=== PATIENT | male | born 1930 | race Caucasian/White ===

== ENCOUNTER 2016-10-07 13:03 | Inpatient (IN) | payer MEDICARE ==
[2016-10-07] MEDS ORDERED: Magnesium Hydroxide 400 MG/5 ML Susp 30 ML Cup PO PRN (13:14)
[2016-10-07] MEDS ORDERED: Docusate Sodium 100 MG Cap PO PRN (13:14)
[2016-10-07] MEDS ORDERED: Ondansetron 4 MG/2 ML SDV IV PRN (13:14)
[2016-10-07] MEDS: Lactated Ringers 1,000 ML IV SCH ×2 (14:52→22:49)
[2016-10-07] MEDS ORDERED: Polyethylene Glycol 3350 Powder 17 GM Packet PO PRN (15:06)
[2016-10-07] MEDS: Pantoprazole 40 MG Vial IVPUSH SCH (16:09)
[2016-10-07] MEDS: METOCLOPRAMIDE 5 MG/5 ML PO SCH ×2 (16:10→19:39)
[2016-10-07] MEDS: Enalaprilat 1.25 MG/ML SDV IV SCH (17:15)
[2016-10-07] MEDS ORDERED: Enoxaparin 30 MG/0.3 ML Syringe SUBCUT SCH (20:00)
[2016-10-07] MEDS ORDERED: NORTRIPTYLINE 10 MG/5 ML PO SCH (20:00)
[2016-10-08] MEDS: Enalaprilat 1.25 MG/ML SDV IV SCH ×3 (05:55→11:28)
[2016-10-08] MEDS: Lactated Ringers 1,000 ML IV SCH (06:52)
[2016-10-08] MEDS ORDERED: Sodium Chloride 0.9% 10 ML Syringe FLUSH PRN (08:01)
[2016-10-08] MEDS: METOCLOPRAMIDE 5 MG/5 ML PO SCH ×3 (08:43→17:03)
--- NOTE | 2016-10-08 10:04 | PN ---
DATE: 10/08/2016 S: Toy is a gentleman admitted last night with nausea, vomiting, and dehydration, was started on IV fluids. O: On examination this morning; NECK: Supple. CHEST: Clear. CARDIAC: Regular. ABDOMEN: Soft. Normal bowel sounds. Full tender upper quadrant. ASSESSMENT: NAUSEA, VOMITING, AND QUESTION DIABETES. P: We will get an A1c. Ultrasound of the gallbladder is pending and then we will look at a C-reactive protein on him. Otherwise, other than the glycosuria and mildly elevated creatinine, everything else looks good. ESRGIO/LENCHO /[id number]
[2016-10-08 16:36] VITALS: BP 87/59
[2016-10-08] MEDS: Pantoprazole 40 MG Vial IVPUSH SCH (17:03)
--- NOTE | 2016-10-09 15:18 | DISCH ---
REASON FOR HOSPITALIZATION: This elderly gentleman came in. He is known to have gastroparesis. He came in vomiting, a little dehydrated. He has been now started on IV fluids. At the time of discharge, he was tolerating relatively regular diet. PHYSICAL EXAMINATION: ABDOMEN: Bowel sounds were good. No abdominal tenderness. CHEST: Clear. CARDIAC: Regular. IMAGING: Ultrasound of the gallbladder pending. I suspect it is going to be normal. LABORATORY DATA: Lab here in the hospital, CBC looked good. Creatinine mildly elevated. He had an A1c of 6.5. C-reactive protein was normal. Urinalysis, mild glycosuria. DISPOSITION: The patient is now discharged home. We will see him back in the clinic in 1 week. Recheck blood pressure. DISCHARGE MEDICATIONS: Home medications. DISCHARGE DIAGNOSIS: 1. NAUSEA AND VOMITING. 2. GASTROPARESIS. 3. HYPOTENSION, QUESTION ETIOLOGY. 4. MILD RENAL INSUFFICIENCY. MARIAH /[id number]
== END 2016-10-08 16:55 | disposition home or self-care (01) | DRG 392 ==
LOC: UNDOADMIN 13:03 → CC.MS 13:03
PROVIDERS: ADMIT Physician Assistant Medical; ATTEND General Practice
DX: K31.84 Gastroparesis (principal); M19.90 Unspecified osteoarthritis, unspecified site; N40.0 Benign prostatic hyperplasia without lower urinary tract symptoms; I25.10 Atherosclerotic heart disease of native coronary artery without angina pectoris; E78.5 Hyperlipidemia, unspecified; B37.9 Candidiasis, unspecified; G47.30 Sleep apnea, unspecified; E55.9 Vitamin D deficiency, unspecified; E86.0 Dehydration; I95.9 Hypotension, unspecified; N28.9 Disorder of kidney and ureter, unspecified; R81 Glycosuria
CPT/HCPCS: 36415; 74020; 76705; 80053; 81001; 82150; 83036; 83735; 85025; 86140; A9270-GY; C9113; J1650; J2405; J7120

== ENCOUNTER 2017-08-31 11:00 | Inpatient (IN) | payer MEDICARE ==
[2017-08-31] MEDS ORDERED: Lactated Ringers 1,000 ML IV ONE (11:24)
[2017-08-31] MEDS ORDERED: Ondansetron 8 MG in Sodium Chloride 0.9% 50 ML IV PRN (11:24)
--- NOTE | 2017-08-31 11:34 | EDM.PDOC ---
ED HPI GENERAL MEDICAL PROBLEM - General Chief Complaint: Gastrointestinal Problem Stated Complaint: nausea,dehydration Time Seen by Provider: 08/31/17 11:15 Source of Information: Reports: Patient, Family History Limitations: Reports: No Limitations - History of Present Illness INITIAL COMMENTS - FREE TEXT/NARRATIVE: Toy is an 86 year old male who presents to the ED with c/o nausea, vomiting, and constipation. His reports he has extensive medical history in regards to his abdomen. Struggles with constipation. He reports he has not had a BM since Friday 08/25. He has tried mag citrate and other laxatives without success. He reports that yesterday he began vomiting and has felt nauseated. He does report he is passing some gas and is burping lots. Has had a poor appetite. He reports he has not eaten or drank much the past few days. He denies any abdominal pain at present, but does report he did have some sharp pains on Friday. Has felt somewhat lightheaded. Denies any fever, chills, chest pain, shortness of breath, urinary symptoms, neuro changes. Onset Date: 08/29/17 Duration: Getting Worse Location: Reports: Abdomen Treatments DONKEY DOCTOR: Reports: Other Medication(s) (Mag citrate, laxatives) - Related Data Allergies Allergy/AdvReac Type Severity Reaction Status Date / Time morphine Allergy Hypertensio Verified 08/31/17 11:08 n Home Meds: Home Meds Metoclopramide [Reglan] 5 mg PO QID 06/07/13 [History] Nortriptyline HCl 50 ml PO DAILY 10/07/16 [History] Pantoprazole Sodium 40 mg PO DAILY 10/07/16 [History] Polyethylene Glycol 3350 [Clearlax] 17 gm PO DAILY PRN 10/07/16 [History] Past Medical History HEENT History: Reports: Other (See Below) Other HEENT History: 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, CAD, High Cholesterol Respiratory History: Reports: Sleep Apnea Gastrointestinal History: Reports: Other (See Below) Other Gastrointestinal History: chronic abdominal pain, gastroparesis Genitourinary History: Reports: BPH, Other (See Below) Other Genitourinary History: nocturia Musculoskeletal History: Reports: Arthritis Endocrine/Metabolic History: Reports: Vitamin D Deficiency - Past Surgical History Cardiovascular Surgical History: Reports: Coronary Artery Bypass GI Surgical History: Reports: Appendectomy Musculoskeletal Surgical History: Reports: Shoulder Surgery, Other (See Below) Other Musculoskeletal Surgeries/Procedures:: knee surgery Social & Family History - Tobacco Use Smoking Status *Q: Never Smoker - Caffeine Use Caffeine Use: Reports: None - Recreational Drug Use Recreational Drug Use: No - Living Situation & Occupation Living situation: Reports: Occupation: Retired ED ROS GENERAL - Review of Systems Review Of Systems: See Below Constitutional: Reports: Weakness, Fatigue, Decreased Appetite. Denies: Fever, Chills, Diaphoresis, Weight Loss HEENT: Reports: Rhinitis. Denies: Ear Pain, Throat Pain, Throat Swelling, Vertigo, Vision Change Respiratory: Reports: No Symptoms. Denies: Shortness of Breath, Wheezing, Pleuritic Chest Pain, Cough, Sputum, Hemoptysis Cardiovascular: Reports: Dyspnea on Exertion, Lightheadedness. Denies: Chest Pain, Edema, Palpitations, Syncope Endocrine: Reports: Fatigue GI/Abdominal: Reports: Anorexia, Constipation, Decreased Appetite, Distension, Flatus, Nausea, Vomiting. Denies: Abdominal Pain, Black Stool, Bloody Stool, Diarrhea, Hematemesis, Hematochezia, Melena : Reports: No Symptoms. Denies: Dysuria, Frequency, Urgency Musculoskeletal: Reports: No Symptoms Skin: Reports: Pallor Neurological: Reports: Dizziness, Weakness. Denies: Confusion, Headache, Numbness, Tingling Psychiatric: Reports: No Symptoms Hematologic/Lymphatic: Reports: No Symptoms Immunologic: Reports: No Symptoms ED EXAM, GI/ABD - Physical Exam Exam: See Below Exam Limited By: No Limitations General Appearance: Alert, WD/WN, Mild Distress Eyes: Bilateral: EOMI Head: Atraumatic, Normocephalic Neck: Normal Inspection, Supple, Non-Tender, Full Range of Motion Respiratory/Chest: No Respiratory Distress, No Accessory Muscle Use, Chest Non- Tender, Decreased Breath Sounds, Crackles Cardiovascular: Normal Peripheral Pulses, Regular Rate, Rhythm, No Edema, No Gallop, No JVD, No Murmur, No Rub GI/Abdominal Exam: Soft, Non-Tender, No Mass, Distended, Abnormal Bowel Sounds ( tinkling to BUQ, active BLQ). No: Guarding, Rigid, Rebound Back Exam: Normal Inspection, Full Range of Motion. No: CVA Tenderness (L), CVA Tenderness (R) Extremities: Normal Inspection, Normal Range of Motion, Non-Tender, Normal Capillary Refill, No Pedal Edema Neurological: Alert, Oriented, CN II-XII Intact, Normal Cognition, Normal Gait, Normal Reflexes, No Motor/Sensory Deficits Psychiatric: Normal Affect, Normal Mood Skin Exam: Warm, Dry, Intact, No Rash, Pallor Lymphatic: No Adenopathy Course - Vital Signs Last Recorded V/S: Last Vital Signs Temp 97.2 F 08/31/17 12:36 Pulse 106 H 08/31/17 12:36 Resp 16 08/31/17 12:36 BP 123/84 08/31/17 12:36 Pulse Ox 97 08/31/17 12:36 - Orders/Labs/Meds Orders: Active Orders 24 hr Category Date Time Status Patient Status [ADT] Routine ADT 08/31/17 12:36 Active Enema [RC] .PRN Care 08/31/17 12:05 Active Intake and Output [RC] 0600,1800 Care 08/31/17 12:36 Active Oxygen Therapy [RC] .PRN Care 08/31/17 12:36 Active Pulse Oximetry [RC] .PRN Care 08/31/17 12:36 Active Up With Assistance [RC] .PRN Care 08/31/17 12:36 Active Vital Signs [RC] 0800,1200,1600,2000,0000,0400 Care 08/31/17 12:36 Active Clear Liquid Diet [DIET] Diet 08/31/17 Dinner Active Abdomen 2V AP Flat Upright [CR] Stat Exams 08/31/17 11:22 Taken BASIC METABOLIC PANEL,BMP [CHEM] AM Lab 09/01/17 05:11 Ordered C-REACTIVE PROTEIN [CHEM] AM Lab 09/01/17 05:11 Ordered CBC WITH AUTO DIFF [HEME] AM Lab 09/01/17 05:11 Ordered MAGNESIUM [CHEM] AM Lab 09/01/17 05:11 Ordered Acetaminophen [Tylenol] Med 08/31/17 12:36 Active 650 mg PO Q4H PRN Enoxaparin [Lovenox] Med 08/31/17 16:00 Active 30 mg SUBCUT Q24H Ondansetron [Zofran] Med 08/31/17 12:36 Active 4 mg IV Q6H PRN Ondansetron [Zofran] 8 mg Med 08/31/17 11:24 Active Sodium Chloride 0.9% [Normal Saline] 50 ml IV Q8H Sodium Chloride 0.9% [Normal Saline] 1,000 ml Med 08/31/17 12:36 Active IV ASDIRECTED Temazepam [Restoril] Med 08/31/17 12:36 Active 15 mg PO BEDTIME PRN Resuscitation Status Routine Resus Stat 08/31/17 12:26 Ordered Medication Orders Acetaminophen (Tylenol) 650 mg PO Q4H PRN PRN Reason: Pain (Mild 1-3)/fever Enoxaparin Sodium (Lovenox) 30 mg SUBCUT Q24H DAO Ondansetron HCl 8 mg/ Sodium (Chloride) 54 mls @ 100 mls/hr IV Q8H PRN PRN Reason: Nausea Last Admin: 08/31/17 11:51 Dose: 100 mls/hr Sodium Chloride (Normal Saline) 1,000 mls @ 100 mls/hr IV ASDIRECTED DAO Insulin Aspart (Novolog) 0 unit SUBCUT WITHMEALSANDBED DAO; Protocol Metoclopramide HCl (Reglan) 5 mg PO QID DAO Non-Formulary Medication (Nortriptyline Hcl [Nortriptyline Hcl]) 50 ml PO DAILY DAO Ondansetron HCl (Zofran) 4 mg IV Q6H PRN PRN Reason: Nausea/Vomiting Pantoprazole Sodium (Protonix) 40 mg PO DAILY DAO Polyethylene Glycol (Miralax) 17 gm PO DAILY DAO Temazepam (Restoril) 15 mg PO BEDTIME PRN PRN Reason: Sleep Labs: Laboratory Tests 08/31/17 08/31/17 Range/Units 11:25 11:25 WBC 10.4 H (5.0-10.0) 10^3/uL RBC 5.29 (4.50-6.00) 10^6/uL Hgb 14.9 (14.0-18.0) g/dL Hct 44.0 (40.0-54.0) % MCV 83.2 (82.0-94.0) fL MCH 28.2 (27.0-32.0) pg MCHC 33.9 (33.0-38.0) g/dL RDW Coeff of Irena 14.9 (11.0-15.0) % Plt Count 197 (150-400) 10^3/uL Neut % (Auto) 85.9 H (35-85) % Lymph % (Auto) 6.9 L (10-55) % Forest % (Auto) 7.2 (0-16) % Eos % (Auto) 0 (0-5) % Baso % (Auto) 0 (0-3) % Neut # (Auto) 8.92 H (1.80-7.00) 10^3/uL Lymph # (Auto) 0.72 L (1.00-4.80) 10^3/uL Forest # (Auto) 0.75 (0.00-0.80) 10^3/uL Eos # (Auto) 0.00 (0.00-0.45) 10^3/uL Baso # (Auto) 0.00 10^3/uL Sodium 134 L (136-145) mEq/L Potassium 4.2 (3.5-5.0) mEq/L Chloride 93 L (98-106) mEq/L Carbon Dioxide 26 (21-32) mmol/L BUN 24 H (7-18) mg/dL Creatinine 1.7 H (0.7-1.3) mg/dL Est Cr Clr Drug Dosing 26.12 mL/min Estimated GFR (MDRD) 38 L (>=60) mL/min Glucose 247 H D (75-99) mg/dL Calcium 10.3 H (8.4-10.1) mg/dL Total Bilirubin 0.7 (0.0-1.0) mg/dL AST 19 (15-37) U/L ALT 15 (12-78) U/L Alkaline Phosphatase 116 (46-116) U/L C-Reactive Protein 5.8 H (0.2-0.8) mg/dL Total Protein 7.9 (6.4-8.2) g/dL Albumin 4.1 (3.4-5.0) g/dL Meds: Medications Generic Name Dose Route Start Last Admin Trade Name Freq PRN Reason Stop Dose Admin Acetaminophen 650 mg 08/31/17 12:36 Tylenol PO Q4H PRN Pain (Mild 1-3)/fever Enoxaparin Sodium 30 mg 08/31/17 16:00 Lovenox SUBCUT Q24H DAO Ondansetron HCl 8 mg/ Sodium 54 mls @ 100 mls/hr 08/31/17 11:24 08/31/17 11: 51 Chloride IV 100 mls/hr Q8H PRN Administration Nausea Sodium Chloride 1,000 mls @ 100 mls/hr 08/31/17 12:36 Normal Saline IV ASDIRECTED [facility] Insulin Aspart 0 unit 08/31/17 17:30 Novolog SUBCUT WITHMEALSANDBED [facility] Protocol Metoclopramide HCl 5 mg 08/31/17 16:00 Reglan PO QID [facility] Non-Formulary Medication 50 ml 09/01/17 08:00 Nortriptyline Hcl [Nortriptyline Hcl] PO DAILY [facility] Ondansetron HCl 4 mg 08/31/17 12:36 Zofran IV Q6H PRN Nausea/Vomiting Pantoprazole Sodium 40 mg 09/01/17 08:00 Protonix PO DAILY [facility] Polyethylene Glycol 17 gm 09/01/17 08:00 Miralax PO DAILY [facility] Temazepam 15 mg 08/31/17 12:36 Restoril PO BEDTIME PRN Sleep Discontinued Medications Generic Name Dose Route Start Last Admin Trade Name Eugeneq PRN Reason Stop Dose Admin Lactated Ringer's 1,000 mls @ 999 mls/hr 08/31/17 11:24 08/31/17 11:51 Ringers, Lactated IV 08/31/17 12:24 999 mls/hr .BOLUS ONE Administration Magnesium Citrate 300 ml 08/31/17 12:05 Citrate Of Magnesia PO 08/31/17 12:06 ONETIME ONE - Re-Assessments/Exams Free Text/Narrative Re-Assessment/Exam: 08/31/17 12:20 Discussed labs and xray with patient and . I do not see multiple air fluid levels to indicate bowel obstruction. We will admit to observation. Try enema and mag citrate to get patient to have BM. NS @ 100 mL/hr. 08/31/2017 1330 Radiology report indicates no bowel obstruction. They also report there is not significant stool in colon. Will still proceed with methods to induce BM as patient has not had one in ~6 days. Departure - Departure Time of Disposition: 12:40 Disposition: Refer to Observation Condition: Fair Clinical Impression: Constipation, Nausea and vomiting, Renal insufficiency - Discharge Information - Problem List & Annotations (1) Constipation SNOMED Code(s): 96351060 Code(s): K59.00 - CONSTIPATION, UNSPECIFIED Status: Acute Current Visit: Yes (2) Diabetes mellitus type 2 SNOMED Code(s): 98835295 Code(s): E11.9 - TYPE 2 DIABETES MELLITUS WITHOUT COMPLICATIONS Status: Chronic Priority: Medium Current Visit: No (3) Nausea and vomiting SNOMED Code(s): 26604628 Code(s): R11.2 - NAUSEA WITH VOMITING, UNSPECIFIED Status: Acute Priority : High Current Visit: Yes (4) Renal insufficiency SNOMED Code(s): 751561044, 856818591 Code(s): N28.9 - DISORDER OF KIDNEY AND URETER, UNSPECIFIED Status: Acute Current Visit: Yes - Problem List Review Problem List Initiated/Reviewed/Updated: Yes - My Orders Last 24 Hours: My Active Orders 08/31/17 11:22 Abdomen 2V AP Flat Upright [CR] Stat 08/31/17 11:24 Ondansetron [Zofran] 8 mg Sodium Chloride 0.9% [Normal Saline] 50 ml IV Q8H 08/31/17 12:05 Enema [RC] .PRN 08/31/17 12:26 Resuscitation Status Routine 08/31/17 12:36 Patient Status [ADT] Routine Intake and Output [RC] 0600,1800 Oxygen Therapy [RC] .PRN Pulse Oximetry [RC] .PRN Up With Assistance [RC] .PRN Vital Signs [RC] 0800,1200,1600,2000,0000,0400 Acetaminophen [Tylenol] 650 mg PO Q4H PRN Ondansetron [Zofran] 4 mg IV Q6H PRN Sodium Chloride 0.9% [Normal Saline] 1,000 ml IV ASDIRECTED Temazepam [Restoril] 15 mg PO BEDTIME PRN 08/31/17 16:00 Enoxaparin [Lovenox] 30 mg SUBCUT Q24H 08/31/17 Dinner Clear Liquid Diet [DIET] 09/01/17 05:11 BASIC METABOLIC PANEL,BMP [CHEM] AM C-REACTIVE PROTEIN [CHEM] AM CBC WITH AUTO DIFF [HEME] AM MAGNESIUM [CHEM] AM - Assessment/Plan Admission H&P: Please use this note as an admission H&P Last 24 Hours: My Active Orders 08/31/17 11:22 Abdomen 2V AP Flat Upright [CR] Stat 08/31/17 11:24 Ondansetron [Zofran] 8 mg Sodium Chloride 0.9% [Normal Saline] 50 ml IV Q8H 08/31/17 12:05 Enema [RC] .PRN 08/31/17 12:26 Resuscitation Status Routine 08/31/17 12:36 Patient Status [ADT] Routine Intake and Output [RC] 0600,1800 Oxygen Therapy [RC] .PRN Pulse Oximetry [RC] .PRN Up With Assistance [RC] .PRN Vital Signs [RC] 0800,1200,1600,2000,0000,0400 Acetaminophen [Tylenol] 650 mg PO Q4H PRN Ondansetron [Zofran] 4 mg IV Q6H PRN Sodium Chloride 0.9% [Normal Saline] 1,000 ml IV ASDIRECTED Temazepam [Restoril] 15 mg PO BEDTIME PRN 08/31/17 16:00 Enoxaparin [Lovenox] 30 mg SUBCUT Q24H 08/31/17 Dinner Clear Liquid Diet [DIET] 09/01/17 05:11 BASIC METABOLIC PANEL,BMP [CHEM] AM C-REACTIVE PROTEIN [CHEM] AM CBC WITH AUTO DIFF [HEME] AM MAGNESIUM [CHEM] AM Plan: Admit to observation. Will start IVF. Enema and mag citrate to see if we can get patient to have bowel movement. Abdominal xray reveals no bowel obstruction, nor does it reveal significant stool. Zofran as needed for nausea. Will get QID blood glucose checks. BS elevated on lab work. SS novolog.
[2017-08-31] MEDS ORDERED: Magnesium Citrate Solution 296 ML Bottle PO ONE (12:05)
[2017-08-31] MEDS ORDERED: Ondansetron 4 MG/2 ML SDV IV PRN (12:36)
[2017-08-31] MEDS ORDERED: Acetaminophen 325 MG Tab PO PRN (12:36)
[2017-08-31] MEDS: Sodium Chloride 0.9% 1,000 ML IV SCH ×2 (13:58→19:49)
[2017-08-31] MEDS ORDERED: Enoxaparin 30 MG/0.3 ML Syringe SUBCUT SCH (16:00)
[2017-08-31] MEDS ORDERED: Metoclopramide 10 MG Tab PO SCH (16:00)
[2017-08-31] MEDS: METOCLOPRAMIDE 5 MG/5 ML PO SCH ×2 (16:50→19:51)
[2017-08-31] MEDS: Insulin Aspart 100 Units/ML 3 ML Pen SUBCUT SCH (17:24)
[2017-08-31] MEDS: Pantoprazole 40 MG Vial IVPUSH SCH (18:28)
[2017-09-01] MEDS: Insulin Aspart 100 Units/ML 3 ML Pen SUBCUT SCH ×5 (03:14→20:34)
[2017-09-01] MEDS: METOCLOPRAMIDE 5 MG/5 ML PO SCH ×4 (07:41→20:32)
[2017-09-01] MEDS: NORTRIPTYLINE 10 MG/5 ML PO SCH (07:42)
[2017-09-01] MEDS ORDERED: NORTRIPTYLINE HCL PO SCH (08:00)
[2017-09-01] MEDS ORDERED: Polyethylene Glycol 3350 Powder 238 GM Bot PO SCH (08:00)
[2017-09-01] MEDS ORDERED: NORTRIPTYLINE PO SCH (08:00)
[2017-09-01] MEDS ORDERED: Levofloxacin/Dextrose 5%-Water 500 MG in Premix Bag 1 BAG IV ONE (08:00)
[2017-09-01] MEDS ORDERED: Pantoprazole 40 MG Tab.CR PO SCH (08:00)
[2017-09-01] MEDS: Polyethylene Glycol 3350 Powder 17 GM Packet PO SCH (08:04)
[2017-09-01] MEDS: Sodium Chloride 0.9% 1,000 ML IV SCH (10:54)
[2017-09-01] MEDS ORDERED: hydrALAZINE 20 MG/ML SDV IVPUSH PRN (17:13)
[2017-09-01] MEDS: Pantoprazole 40 MG Vial IVPUSH SCH (17:46)
[2017-09-01] MEDS ORDERED: hydrALAZINE 25 MG Tab PO STA (17:53)
[2017-09-02] MEDS: Temazepam 15 MG Cap PO PRN (00:17)
[2017-09-02] MEDS: METOCLOPRAMIDE 5 MG/5 ML PO SCH ×4 (07:42→19:40)
[2017-09-02] MEDS: NORTRIPTYLINE 10 MG/5 ML PO SCH (07:44)
[2017-09-02] MEDS: Insulin Aspart 100 Units/ML 3 ML Pen SUBCUT SCH ×2 (07:45→11:52)
[2017-09-02] MEDS: Polyethylene Glycol 3350 Powder 17 GM Packet PO SCH (07:46)
[2017-09-02] MEDS ORDERED: Levofloxacin/Dextrose 5%-Water 250 MG in Premix Bag 1 BAG IV SCH (08:00)
--- NOTE | 2017-09-02 08:31 | PCM.PN ---
- General Info Date of Service: 09/01/17 - Patient Data Vitals - Most Recent: Last Vital Signs Temp 99.3 F 09/02/17 07:31 Pulse 91 09/02/17 07:31 Resp 20 09/02/17 07:31 BP 120/78 09/02/17 07:31 Pulse Ox 94 L 09/02/17 07:31 Weight - Most Recent: 163 lb 14.4 oz I&O - Last 24 Hours: Intake & Output 09/01/17 09/02/17 09/02/17 22:59 06:59 14:59 Intake Total 500 250 Output Total 1500 Balance -1000 250 Lab Results Last 24 Hours: Laboratory Results - last 24 hr 09/01/17 09/01/17 09/01/17 Range/Units 12:04 17:04 20:33 POC Glucose 167 H 181 H 203 H (75-105) mg/dl 09/02/17 Range/Units 07:33 POC Glucose 133 H (75-105) mg/dl Med Orders - Current: Current Medications Acetaminophen (Tylenol) 650 mg PO Q4H PRN PRN Reason: Pain (Mild 1-3)/fever Last Admin: 08/31/17 19:54 Dose: 650 mg Ondansetron HCl 8 mg/ Sodium (Chloride) 54 mls @ 100 mls/hr IV Q8H PRN PRN Reason: Nausea Last Admin: 08/31/17 11:51 Dose: 100 mls/hr Levofloxacin/Dextrose 250 mg/ (Premix) 50 mls @ 50 mls/hr IV DAILY [facility] Last Admin: 09/02/17 07:35 Dose: 50 mls/hr Insulin Aspart (Novolog) 0 unit SUBCUT WITHMEALSANDBED [facility]; Protocol Last Admin: 09/02/17 07:45 Dose: Not Given Nortriptyline 10 Mg/5 Ml Oral Soln Own Med 0 ml PO DAILY [facility] Last Admin: 09/02/17 07:44 Dose: 15 ml Metoclopramide 5 Mg/5ml Oral Soln Own Med 0 each PO QID [facility] Last Admin: 09/02/17 07:42 Dose: 1 each Ondansetron HCl (Zofran) 4 mg IV Q6H PRN PRN Reason: Nausea/Vomiting Last Admin: 09/02/17 00:12 Dose: 4 mg Pantoprazole Sodium (Protonix Iv) 40 mg IVPUSH DAILY@1730 [facility] Last Admin: 09/01/17 17:46 Dose: 40 mg Polyethylene Glycol (Miralax) 17 gm PO DAILY [facility] Last Admin: 09/02/17 07:46 Dose: 17 gm Temazepam (Restoril) 15 mg PO BEDTIME PRN PRN Reason: Sleep Last Admin: 09/02/17 00:17 Dose: 15 mg Discontinued Medications Enoxaparin Sodium (Lovenox) 30 mg SUBCUT Q24H [facility] Hydralazine HCl (Apresoline) 25 mg PO NOW STA Stop: 09/01/17 17:54 Last Admin: 09/01/17 18:21 Dose: 25 mg Lactated Ringer's (Ringers, Lactated) 1,000 mls @ 999 mls/hr IV .BOLUS ONE Stop: 08/31/17 12:24 Last Admin: 08/31/17 11:51 Dose: 999 mls/hr Sodium Chloride (Normal Saline) 1,000 mls @ 100 mls/hr IV ASDIRECTED [facility] Last Admin: 09/01/17 10:54 Dose: 100 mls/hr Levofloxacin/Dextrose 500 mg/ (Premix) 100 mls @ 100 mls/hr IV ONETIME ONE Stop: 09/01/17 08:59 Last Admin: 09/01/17 08:08 Dose: 100 mls/hr Magnesium Citrate (Citrate Of Magnesia) 300 ml PO ONETIME ONE Stop: 08/31/17 12:06 Last Admin: 08/31/17 13:00 Dose: 296 ml Metoclopramide HCl (Reglan) 5 mg PO QID [facility] Last Admin: 08/31/17 17:00 Dose: Not Given Non-Formulary Medication (Nortriptyline Hcl [Nortriptyline Hcl]) 50 ml PO DAILY [facility] Non-Formulary Medication (Nortriptyline Hcl [Nortriptyline Hcl]) 30 ml PO DAILY [facility] Pantoprazole Sodium (Protonix) 40 mg PO DAILY [facility] Polyethylene Glycol (Miralax) 17 gm PO DAILY [facility] - Problem List & Annotations (1) Constipation SNOMED Code(s): 87667745 Code(s): K59.00 - CONSTIPATION, UNSPECIFIED Status: Acute Current Visit: Yes (2) Diabetes mellitus type 2 SNOMED Code(s): 33458100 Code(s): E11.9 - TYPE 2 DIABETES MELLITUS WITHOUT COMPLICATIONS Status: Chronic Priority: Medium Current Visit: No (3) Nausea and vomiting SNOMED Code(s): 15929219 Code(s): R11.2 - NAUSEA WITH VOMITING, UNSPECIFIED Status: Acute Priority : High Current Visit: Yes (4) Renal insufficiency SNOMED Code(s): 312972466, 935733779 Code(s): N28.9 - DISORDER OF KIDNEY AND URETER, UNSPECIFIED Status: Acute Current Visit: Yes - My Orders Last 24 Hours: My Active Orders 09/01/17 08:00 UA W/MICROSCOPIC [URIN] Routine Nortriptyline HCl [Nortriptyline HCl] 0 ml PO DAILY Polyethylene Glycol 3350 [MiraLAX] 17 gm PO DAILY 09/02/17 08:00 Levofloxacin/Dextrose 5%-Water [Levaquin in D5W 250 MG/50 ML] 250 mg Premix Bag 1 bag IV DAILY 09/02/17 08:01 BASIC METABOLIC PANEL,BMP [CHEM] Routine CRP, HIGH SENSITIVITY [REF] Routine
--- NOTE | 2017-09-02 08:31 | PCM.DCSUM1 ---
Discharge Summary - Discharge Data Discharge Date: 09/02/17 Discharge Disposition: Home, Self-Care 01 Condition: Good - Discharge Diagnosis/Problem(s) (1) Constipation SNOMED Code(s): 01596455 ICD Code: K59.00 - CONSTIPATION, UNSPECIFIED Status: Acute Current Visit : Yes (2) Diabetes mellitus type 2 SNOMED Code(s): 73441078 ICD Code: E11.9 - TYPE 2 DIABETES MELLITUS WITHOUT COMPLICATIONS Status: Chronic Priority: Medium Current Visit: No (3) Nausea and vomiting SNOMED Code(s): 47856188 ICD Code: R11.2 - NAUSEA WITH VOMITING, UNSPECIFIED Status: Acute Priority: High Current Visit: Yes (4) Renal insufficiency SNOMED Code(s): 292776250, 467172321 ICD Code: N28.9 - DISORDER OF KIDNEY AND URETER, UNSPECIFIED Status: Acute Current Visit: Yes - Discharge Plan Home Medications: Home Meds Metoclopramide [Reglan] 5 mg PO QID 06/07/13 [History] Nortriptyline HCl 15 ml PO DAILY 10/07/16 [History] Pantoprazole Sodium 40 mg PO DAILY 10/07/16 [History] Polyethylene Glycol 3350 [Clearlax] 17 gm PO DAILY PRN 10/07/16 [History] Forms: ED Department Discharge Referrals: Marco A Barraza MD [Primary Care Provider] - - Patient Data Vitals - Most Recent: Last Vital Signs Temp 99.3 F 09/02/17 07:31 Pulse 91 09/02/17 07:31 Resp 20 09/02/17 07:31 BP 120/78 09/02/17 07:31 Pulse Ox 94 L 09/02/17 07:31 Weight - Most Recent: 163 lb 14.4 oz I&O - Last 24 hours: Intake & Output 09/01/17 09/02/17 09/02/17 22:59 06:59 14:59 Intake Total 500 250 Output Total 1500 Balance -1000 250 Lab Results - Last 24 hrs: Laboratory Results - last 24 hr 09/01/17 09/01/17 09/01/17 Range/Units 12:04 17:04 20:33 POC Glucose 167 H 181 H 203 H (75-105) mg/dl 09/02/17 Range/Units 07:33 POC Glucose 133 H (75-105) mg/dl Med Orders - Current: Current Medications Acetaminophen (Tylenol) 650 mg PO Q4H PRN PRN Reason: Pain (Mild 1-3)/fever Last Admin: 08/31/17 19:54 Dose: 650 mg Ondansetron HCl 8 mg/ Sodium (Chloride) 54 mls @ 100 mls/hr IV Q8H PRN PRN Reason: Nausea Last Admin: 08/31/17 11:51 Dose: 100 mls/hr Levofloxacin/Dextrose 250 mg/ (Premix) 50 mls @ 50 mls/hr IV DAILY [facility] Last Admin: 09/02/17 07:35 Dose: 50 mls/hr Insulin Aspart (Novolog) 0 unit SUBCUT WITHMEALSANDBED [facility]; Protocol Last Admin: 09/02/17 07:45 Dose: Not Given Nortriptyline 10 Mg/5 Ml Oral Soln Own Med 0 ml PO DAILY [facility] Last Admin: 09/02/17 07:44 Dose: 15 ml Metoclopramide 5 Mg/5ml Oral Soln Own Med 0 each PO QID [facility] Last Admin: 09/02/17 07:42 Dose: 1 each Ondansetron HCl (Zofran) 4 mg IV Q6H PRN PRN Reason: Nausea/Vomiting Last Admin: 09/02/17 00:12 Dose: 4 mg Pantoprazole Sodium (Protonix Iv) 40 mg IVPUSH DAILY@1730 [facility] Last Admin: 09/01/17 17:46 Dose: 40 mg Polyethylene Glycol (Miralax) 17 gm PO DAILY [facility] Last Admin: 09/02/17 07:46 Dose: 17 gm Temazepam (Restoril) 15 mg PO BEDTIME PRN PRN Reason: Sleep Last Admin: 09/02/17 00:17 Dose: 15 mg Discontinued Medications Enoxaparin Sodium (Lovenox) 30 mg SUBCUT Q24H [facility] Hydralazine HCl (Apresoline) 25 mg PO NOW STA Stop: 09/01/17 17:54 Last Admin: 09/01/17 18:21 Dose: 25 mg Lactated Ringer's (Ringers, Lactated) 1,000 mls @ 999 mls/hr IV .BOLUS ONE Stop: 08/31/17 12:24 Last Admin: 08/31/17 11:51 Dose: 999 mls/hr Sodium Chloride (Normal Saline) 1,000 mls @ 100 mls/hr IV ASDIRECTED DAO Last Admin: 09/01/17 10:54 Dose: 100 mls/hr Levofloxacin/Dextrose 500 mg/ (Premix) 100 mls @ 100 mls/hr IV ONETIME ONE Stop: 09/01/17 08:59 Last Admin: 09/01/17 08:08 Dose: 100 mls/hr Magnesium Citrate (Citrate Of Magnesia) 300 ml PO ONETIME ONE Stop: 08/31/17 12:06 Last Admin: 08/31/17 13:00 Dose: 296 ml Metoclopramide HCl (Reglan) 5 mg PO QID DAO Last Admin: 08/31/17 17:00 Dose: Not Given Non-Formulary Medication (Nortriptyline Hcl [Nortriptyline Hcl]) 50 ml PO DAILY [facility] Non-Formulary Medication (Nortriptyline Hcl [Nortriptyline Hcl]) 30 ml PO DAILY [facility] Pantoprazole Sodium (Protonix) 40 mg PO DAILY [facility] Polyethylene Glycol (Miralax) 17 gm PO DAILY [facility]
--- NOTE | 2017-09-02 16:32 | PCM.PN ---
- General Info Date of Service: 09/02/17 Admission Dx/Problem (Free Text): Constipation Dehydration N/V Functional Status: Reports: Pain Controlled - Patient Data Vitals - Most Recent: Last Vital Signs Temp 99.2 F 09/02/17 15:36 Pulse 88 09/02/17 15:36 Resp 19 09/02/17 15:36 BP 89/64 L 09/02/17 15:36 Pulse Ox 92 L 09/02/17 15:36 Weight - Most Recent: 163 lb 14.4 oz I&O - Last 24 Hours: Intake & Output 09/02/17 09/02/17 09/02/17 06:59 14:59 22:59 Intake Total 250 Balance 250 Lab Results Last 24 Hours: Laboratory Results - last 24 hr 09/01/17 09/01/17 09/02/17 Range/Units 17:04 20:33 07:33 Sodium (136-145) mEq/L Potassium (3.5-5.0) mEq/L Chloride (98-106) mEq/L Carbon Dioxide (21-32) mmol/L BUN (7-18) mg/dL Creatinine (0.7-1.3) mg/dL Est Cr Clr Drug Dosing mL/min Estimated GFR (MDRD) (>=60) mL/min Glucose (75-99) mg/dL POC Glucose 181 H 203 H 133 H (75-105) mg/dl Calcium (8.4-10.1) mg/dL C-Reactive Protein (0.2-0.8) mg/dL 09/02/17 Range/Units 08:01 Sodium 135 L (136-145) mEq/L Potassium 3.5 (3.5-5.0) mEq/L Chloride 95 L (98-106) mEq/L Carbon Dioxide 27 (21-32) mmol/L BUN 25 H (7-18) mg/dL Creatinine 2.1 H (0.7-1.3) mg/dL Est Cr Clr Drug Dosing 21.14 mL/min Estimated GFR (MDRD) 30 L (>=60) mL/min Glucose 175 H (75-99) mg/dL POC Glucose (75-105) mg/dl Calcium 8.8 (8.4-10.1) mg/dL C-Reactive Protein 9.5 H (0.2-0.8) mg/dL Med Orders - Current: Current Medications Acetaminophen (Tylenol) 650 mg PO Q4H PRN PRN Reason: Pain (Mild 1-3)/fever Last Admin: 08/31/17 19:54 Dose: 650 mg Ondansetron HCl 8 mg/ Sodium (Chloride) 54 mls @ 100 mls/hr IV Q8H PRN PRN Reason: Nausea Last Admin: 08/31/17 11:51 Dose: 100 mls/hr Levofloxacin/Dextrose 250 mg/ (Premix) 50 mls @ 50 mls/hr IV DAILY [facility] Last Admin: 09/02/17 07:35 Dose: 50 mls/hr Insulin Aspart (Novolog) 0 unit SUBCUT WITHMEALSANDBED [facility]; Protocol Last Admin: 09/02/17 11:52 Dose: Not Given Nortriptyline 10 Mg/5 Ml Oral Soln Own Med 0 ml PO DAILY [facility] Last Admin: 09/02/17 07:44 Dose: 15 ml Metoclopramide 5 Mg/5ml Oral Soln Own Med 0 each PO QID [facility] Last Admin: 09/02/17 11:52 Dose: 1 each Ondansetron HCl (Zofran) 4 mg IV Q6H PRN PRN Reason: Nausea/Vomiting Last Admin: 09/02/17 00:12 Dose: 4 mg Pantoprazole Sodium (Protonix Iv) 40 mg IVPUSH DAILY@1730 [facility] Last Admin: 09/01/17 17:46 Dose: 40 mg Polyethylene Glycol (Miralax) 17 gm PO DAILY [facility] Last Admin: 09/02/17 07:46 Dose: 17 gm Temazepam (Restoril) 15 mg PO BEDTIME PRN PRN Reason: Sleep Last Admin: 09/02/17 00:17 Dose: 15 mg Discontinued Medications Enoxaparin Sodium (Lovenox) 30 mg SUBCUT Q24H [facility] Hydralazine HCl (Apresoline) 25 mg PO NOW STA Stop: 09/01/17 17:54 Last Admin: 09/01/17 18:21 Dose: 25 mg Lactated Ringer's (Ringers, Lactated) 1,000 mls @ 999 mls/hr IV .BOLUS ONE Stop: 08/31/17 12:24 Last Admin: 08/31/17 11:51 Dose: 999 mls/hr Sodium Chloride (Normal Saline) 1,000 mls @ 100 mls/hr IV ASDIRECTED [facility] Last Admin: 09/01/17 10:54 Dose: 100 mls/hr Levofloxacin/Dextrose 500 mg/ (Premix) 100 mls @ 100 mls/hr IV ONETIME ONE Stop: 09/01/17 08:59 Last Admin: 09/01/17 08:08 Dose: 100 mls/hr Magnesium Citrate (Citrate Of Magnesia) 300 ml PO ONETIME ONE Stop: 08/31/17 12:06 Last Admin: 08/31/17 13:00 Dose: 296 ml Metoclopramide HCl (Reglan) 5 mg PO QID [facility] Last Admin: 08/31/17 17:00 Dose: Not Given Non-Formulary Medication (Nortriptyline Hcl [Nortriptyline Hcl]) 50 ml PO DAILY [facility] Non-Formulary Medication (Nortriptyline Hcl [Nortriptyline Hcl]) 30 ml PO DAILY [facility] Pantoprazole Sodium (Protonix) 40 mg PO DAILY [facility] Polyethylene Glycol (Miralax) 17 gm PO DAILY [facility] - Problem List & Annotations (1) Constipation SNOMED Code(s): 02888479 Code(s): K59.00 - CONSTIPATION, UNSPECIFIED Status: Acute Current Visit: Yes (2) Diabetes mellitus type 2 SNOMED Code(s): 37886194 Code(s): E11.9 - TYPE 2 DIABETES MELLITUS WITHOUT COMPLICATIONS Status: Chronic Priority: Medium Current Visit: No (3) Nausea and vomiting SNOMED Code(s): 73764097 Code(s): R11.2 - NAUSEA WITH VOMITING, UNSPECIFIED Status: Acute Priority : High Current Visit: Yes (4) Renal insufficiency SNOMED Code(s): 925297204, 355005194 Code(s): N28.9 - DISORDER OF KIDNEY AND URETER, UNSPECIFIED Status: Acute Current Visit: Yes (5) Diverticulitis SNOMED Code(s): 092124803 Code(s): K57.92 - DVTRCLI OF INTEST, PART UNSP, W/O PERF OR ABSCESS W/O BLEED Status: Acute Current Visit: Yes - My Orders Last 24 Hours: My Active Orders 09/02/17 08:00 Levofloxacin/Dextrose 5%-Water [Levaquin in D5W 250 MG/50 ML] 250 mg Premix Bag 1 bag IV DAILY 09/02/17 08:35 Ready for Discharge [RC] PER UNIT ROUTINE
[2017-09-02] MEDS: Sodium Chloride 0.9% 1,000 ML IV SCH (17:28)
[2017-09-02] MEDS: Pantoprazole 40 MG Vial IVPUSH SCH (17:31)
[2017-09-02] MEDS: metroNIDAZOLE/Normal Saline 500 MG in Premix Bag 1 BAG IV SCH (17:34)
[2017-09-03] MEDS: Temazepam 15 MG Cap PO PRN (00:20)
[2017-09-03] MEDS: metroNIDAZOLE/Normal Saline 500 MG in Premix Bag 1 BAG IV SCH ×2 (00:21→07:20)
[2017-09-03] MEDS: Sodium Chloride 0.9% 1,000 ML IV SCH (05:24)
[2017-09-03] MEDS: METOCLOPRAMIDE 5 MG/5 ML PO SCH ×2 (07:24→11:42)
[2017-09-03] MEDS: Polyethylene Glycol 3350 Powder 17 GM Packet PO SCH (07:25)
[2017-09-03] MEDS: NORTRIPTYLINE 10 MG/5 ML PO SCH (07:25)
--- NOTE | 2017-09-03 11:10 | DISCH ---
HOSPITAL COURSE: Toy Rasheed came in with some dehydration and diagnosis of diverticulitis, I did a CT scan, which looked normal, but clinically had diverticulitis. Started him on IV antibiotics. At the time of discharge, he had no further abdominal pain, was eating fine and felt good. Lab here in the hospital, CBC looked normal. Creatinine went up a little bit 2.1. We gave him some more IV fluids. I will be followed as an outpatient. C- reactive protein got up to 9.5, but at the time of discharge, has normal exam. Urinalysis looked good. DISPOSITION: The patient now discharged home. We will see him back in the clinic next week. Appropriate lab work. DISCHARGE MEDICATIONS: Home medications plus Omnicef daily for 10 days. DISCHARGE DIAGNOSIS: 1. DEHYDRATION. 2. DIVERTICULITIS. 3. CONSTIPATION. MARIAH /[id number]
[2017-09-03 11:54] VITALS: BP 104/64
== END 2017-09-03 13:15 | disposition home or self-care (01) | DRG 392 ==
LOC: CC.ED 11:00 → CC.MS 12:26 → UNDOADMOB 12:28 → CC.MS 12:28 → OBSVTOIN 09-02 16:23
PROVIDERS: ADMIT Nurse Practitioner Family; ATTEND General Practice
DX: K57.92 Diverticulitis of intestine, part unspecified, without perforation or abscess without bleeding (principal); E86.0 Dehydration; K59.00 Constipation, unspecified; E78.00 Pure hypercholesterolemia, unspecified; I25.10 Atherosclerotic heart disease of native coronary artery without angina pectoris; G47.30 Sleep apnea, unspecified; R10.9 Unspecified abdominal pain; G89.29 Other chronic pain; E11.43 Type 2 diabetes mellitus with diabetic autonomic (poly)neuropathy; K31.84 Gastroparesis; N40.1 Benign prostatic hyperplasia with lower urinary tract symptoms; R35.1 Nocturia; M19.90 Unspecified osteoarthritis, unspecified site; E55.9 Vitamin D deficiency, unspecified; N28.9 Disorder of kidney and ureter, unspecified; Z88.6 Allergy status to analgesic agent; Z95.1 Presence of aortocoronary bypass graft; R53.1 Weakness; R53.83 Other fatigue; J31.0 Chronic rhinitis; R11.2 Nausea with vomiting, unspecified; R06.00 Dyspnea, unspecified; R42 Dizziness and giddiness; R14.0 Abdominal distension (gaseous); Z79.899 Other long term (current) drug therapy
CPT/HCPCS: 36415; 74019; 74177; 80048; 80053; 81001; 82962; 83036; 83735; 85025; 86140; 96361; 96365; 96366; 96367; 96375; 96376; 99284; A9270-GY; C9113; G0378; J1815-GY; J1956; J2405; J7030; J7050; J7120; Q9967

== ENCOUNTER → 2020-09-28 | Day surgery (SDC) | payer MEDICARE, OTHER ==
[~2020-09-28] MED LIST: Lidocaine 2% 5 ML SDV ONE; Propofol 200 MG/20 ML SDV ONE
[2020-09-28] MEDS: Lactated Ringers 1,000 ML IV SCH (07:41)
[2020-09-28 10:21] VITALS: BP 151/80; PULSE 56
--- NOTE | 2020-09-28 11:51 | OR ---
DATE OF OPERATION: 09/28/2020 PREOPERATIVE DIAGNOSIS: DYSPHAGIA. POSTOPERATIVE DIAGNOSIS: DYSPHAGIA. SURGEON: Gilberto Magallon MD PROCEDURE: ESOPHAGOGASTRODUODENOSCOPY WITH BALLOON DILATION OF ESOPHAGEAL STRICTURE TO 19 MM. ANESTHESIA: MAC. SPECIMEN: None. FINDINGS: Distal esophageal stricture and some angulation of the EG junction. INDICATIONS: This 89-year-old male has increasing dysphagia. DESCRIPTION OF PROCEDURE: After adequate preparation, a gastroscope was inserted into the esophagus. This was passed down to the distal esophagus. He does have some angulation and narrowing of the EG junction area and the scope was eventually able to be pushed through the stricture area down into the stomach. Examination of the stomach is normal. Retroflexion shows a moderate- sized hiatal hernia in conjunction with the stricture. On withdrawal of the scope, balloon dilator was inserted through the scope and sequentially insufflated to a size 19. This was then deflated. The scope was easily advanced back and down into the stomach. The scope then was removed and the patient taken to recovery room. VIANNEY/LENCOH /[id number]
== END ==
LOC: CC.SDS 07:25
PROVIDERS: ATTEND Surgery
DX: K22.2 Esophageal obstruction (principal); K44.9 Diaphragmatic hernia without obstruction or gangrene; K22.8 Other specified diseases of esophagus; M19.90 Unspecified osteoarthritis, unspecified site; I25.10 Atherosclerotic heart disease of native coronary artery without angina pectoris; E78.5 Hyperlipidemia, unspecified; G47.30 Sleep apnea, unspecified; E55.9 Vitamin D deficiency, unspecified; N40.0 Benign prostatic hyperplasia without lower urinary tract symptoms; Z88.6 Allergy status to analgesic agent; Z79.899 Other long term (current) drug therapy
CPT/HCPCS: 00731; 43249; 99100; J2704; J7120